=== PATIENT | female | born 1955 | race Hispanic/Latino ===

== ENCOUNTER 2019-09-07 08:17 | Outpatient (CLI) | payer BC ==
--- NOTE | 2019-09-07 09:24 | MMO ---
Bilateral MAMMO Bilat Screen [facility]. CLINICAL HISTORY: Patient is 63 years old and is seen for screening. The patient has no family history of breast cancer. The patient has no personal history of cancer. VIEWS: The views performed were: bilateral craniocaudal with tomosynthesis and bilateral mediolateral oblique with tomosynthesis. FILMS COMPARED: The present examination has been compared to prior imaging studies performed at [facility] on 07/14/2011, 08/01/2012, 09/18/2013 and 10/04/2016. This study has been interpreted with the assistance of computer-aided detection. MAMMOGRAM FINDINGS: There are scattered fibroglandular densities. Finding 1: There are stable benign appearing calcifications seen in both breasts. There are no suspicious masses, calcifications or areas of architectural distortion. Finding 2: There is a stable intramammary lymph node seen in the left breast. There are no suspicious masses, suspicious calcifications, or new areas of architectural distortion. IMPRESSION: THERE IS NO MAMMOGRAPHIC EVIDENCE OF MALIGNANCY. A ROUTINE FOLLOW-UP MAMMOGRAM IN 1 YEAR IS RECOMMENDED. THE RESULTS OF THIS EXAM WERE SENT TO THE PATIENT. ACR BI-RADS Category 2 - Benign finding MAMMOGRAPHY NOTE: 1. A negative mammogram report should not delay a biopsy if a dominant of clinically suspicious mass is present. 2. Approximately 10% to 15% of breast cancers are not detected by mammography. 3. Adenosis and dense breasts may obscure an underlying neoplasm. Reported by: TIA RUANO MD Electonically Signed: [id number]
== END 2019-09-07 08:18 | disposition home or self-care (01) ==
LOC: BICMAMMO 08:17
PROVIDERS: ATTEND Family Medicine
DX: Z12.31 Encounter for screening mammogram for malignant neoplasm of breast (principal)
CPT/HCPCS: 77063; 77067

== ENCOUNTER 2020-09-08 11:28 | Outpatient (CLI) | payer OTHER ==
--- NOTE | 2020-09-08 13:24 | MMO ---
Bilateral MAMMO Bilat Screen [facility]. CLINICAL HISTORY: Patient is 64 years old and is seen for screening. The patient has no family history of breast cancer. The patient has no personal history of cancer. VIEWS: The views performed were: bilateral craniocaudal with tomosynthesis and bilateral mediolateral oblique with tomosynthesis. FILMS COMPARED: The present examination has been compared to prior imaging studies performed at [facility] on 08/01/2012, 09/18/2013, 10/04/2016 and 09/07/2019. This study has been interpreted with the assistance of computer-aided detection. MAMMOGRAM FINDINGS: There are scattered fibroglandular densities. Finding 1: There are vascular calcifications seen in both breasts. Finding 2: There is a stable intramammary lymph node seen in the left breast. There are no suspicious masses, suspicious calcifications, or new areas of architectural distortion. IMPRESSION: THERE IS NO MAMMOGRAPHIC EVIDENCE OF MALIGNANCY. A ROUTINE FOLLOW-UP MAMMOGRAM IN 1 YEAR IS RECOMMENDED. THE RESULTS OF THIS EXAM WERE SENT TO THE PATIENT. ACR BI-RADS Category 2 - Benign finding MAMMOGRAPHY NOTE: 1. A negative mammogram report should not delay a biopsy if a dominant of clinically suspicious mass is present. 2. Approximately 10% to 15% of breast cancers are not detected by mammography. 3. Adenosis and dense breasts may obscure an underlying neoplasm. Reported by: EDWIN BRICEÑO MD Electonically Signed: [id number]
== END 2020-09-08 11:29 | disposition home or self-care (01) ==
LOC: BICMAMMO 11:28
PROVIDERS: ATTEND Family Medicine
DX: Z12.31 Encounter for screening mammogram for malignant neoplasm of breast (principal)
CPT/HCPCS: 77063; 77067

== ENCOUNTER 2022-03-05 08:23 | Outpatient (CLI) | payer MEDICARE | END 2022-03-05 08:24 | disposition home or self-care (01) | LOC: BICMAMMO 08:23 | PROVIDERS: ATTEND Family Medicine | DX: Z12.31 Encounter for screening mammogram for malignant neoplasm of breast (principal) | CPT/HCPCS: 77063; 77067 ==

== ENCOUNTER 2023-05-31 10:34 | Outpatient (CLI) | payer MEDICARE | END 2023-05-31 10:35 | disposition home or self-care (01) | LOC: RAD 10:34 | PROVIDERS: ATTEND Family Medicine | DX: M25.511 Pain in right shoulder (principal); M19.011 Primary osteoarthritis, right shoulder; M75.31 Calcific tendinitis of right shoulder ==

== ENCOUNTER 2023-06-21 21:27 | Inpatient (IN) | payer MEDICARE ==
[~2023-06-21 21:27] MED LIST: Iopamidol 370 76% 100 ML VIAL ONE
[2023-06-21 22:04] LABS: #Basophils 0.1 thou/uL (0.0-0.2); #Eosinphils 0.2 thou/uL (0.0-0.7); #Monocytes 0.6 thou/uL (0.11-0.59); #Neutrophils 4.5 thou/uL (1.40-6.50); %Basophils 0.6 % (0.0-1.0); %Eosinophils 2.4 % (0.0-10.0); %Lymphocytes 30.9 % (21.0-51.0); %Neutrophils 57.8 % (42.0-75.0); Hematocrit 43.7 % (36.0-47.0); Hemoglobin 15.3 g/dL (12.0-16.0); Mean Corpuscular Hemoglobin 28.1 pg (27.0-31.0); Mean Corpuscular Volume 80.3 fl (78.0-98.0); Mean Platelet Volume 10.7 fL (7.4-10.4); Platelet Count 258 10x3/uL (130-400); RBC Distribution Width 12.8 % (11.5-14.5); Red Blood Cell (RBC) Count 5.44 mill/uL (4.20-5.40); White Blood Cell (WBC) Count 7.9 10x3/uL (4.8-10.8)
[2023-06-21 22:25] LABS: ALT (SGPT) 118 U/L (8-55); AST (SGOT) 72 U/L (5-34); Albumin 4.6 g/dL (3.4-4.8); Alkaline Phosphatase 89 U/L (40-110); Anion Gap 17 mmol/L (10-20); BUN (Urea Nitrogen) 18 mg/dL (9.8-20.1); Bilirubin, Total 0.5 mg/dL (0.2-1.2); Calc. Creatinine Clearance 0 mL/min (70-130); Calcium 10.1 mg/dL (7.8-10.44); Carbon Dioxide 22 mmol/L (23-31); Chloride 98 mmol/L (98-107); Estimated GFR 68; Globulin 4.4 g/dL (2.4-3.5); Glucose 311 mg/dL (80-115); Lipase 78 U/L (8-78); Potassium 4.3 mmol/L (3.5-5.1); Sodium 133 mmol/L (136-145)
[2023-06-21 22:29] LABS: Troponin I 0.157 ng/mL (< 0.028)
[2023-06-21] MEDS ORDERED: Aspirin Chewable 81 MG TAB ONE (23:10)
[2023-06-21] MEDS ORDERED: Morphine 4 MG/ML VIAL ONE (23:26)
[2023-06-21] MEDS ORDERED: Nitroglycerin 0.4 MG TAB 1 EACH ONE (23:27)
[2023-06-21] MEDS ORDERED: Nitroglycerin 50 MG/250 ML BOT 0 ML ONE (23:28)
[2023-06-22] MEDS ORDERED: Morphine 4 MG/ML VIAL ONE (00:51)
[2023-06-22 01:12] LABS: Magnesium 1.7 mg/dL (1.6-2.6)
[2023-06-22 01:17] LABS: Troponin I 0.149 ng/mL (< 0.028)
[2023-06-22] MEDS ORDERED: Nitroglycerin 2% Ointment 1 INCH/1 GM Packet ONE ×2 (01:37→05:43)
[2023-06-22] MEDS ORDERED: Dextrose 50% Abboject 50 ML SYRINGE SLOW IVP PRN (01:49)
[2023-06-22] MEDS ORDERED: Glucagon 1 MG/ML KIT IM PRN (01:49)
[2023-06-22] MEDS ORDERED: Dextrose 5% in Water 1,000 ML IV PRN (01:49)
[2023-06-22] MEDS ORDERED: Nitroglycerin 0.4 MG TAB (25 Tab Bottle) SL PRN (01:49)
[2023-06-22] MEDS ORDERED: HumaLOG 300 UNITS/3 ML VIAL SC PRN ×3 (01:51→03:05)
[2023-06-22 02:23] LABS: INR-International Normal Ratio 0.9; Prothrombin Time 12.9 sec (12.0-14.7)
[2023-06-22 02:24] LABS: PTT 29.4 sec (22.9-36.1)
[2023-06-22] MEDS ORDERED: Labetalol HCl 100 MG/20 ML VIAL SLOW IVP PRN (02:51)
[2023-06-22] MEDS ORDERED: Heparin 10,000 UNITS/ 10 ML VIAL SLOW IVP SCH (03:00)
[2023-06-22] MEDS ORDERED: Labetalol HCl 100 MG/20 ML VIAL SLOW IVP SCH (03:00)
[2023-06-22] MEDS ORDERED: Heparin 25,000 units/D5W 500 ML IVPB SCH (03:00)
[2023-06-22] MEDS ORDERED: Heparin 25,000 units/D5W 500 ML ONE (03:15)
[2023-06-22] MEDS ORDERED: Labetalol HCl 100 MG/20 ML VIAL ONE (03:16)
[2023-06-22 03:45] LABS: Hematocrit 45.6 % (36.0-47.0); Hemoglobin 15.2 g/dL (12.0-16.0); Platelet Count 275 10x3/uL (130-400)
[2023-06-22 03:56] LABS: Hemoglobin A1c 10.2 % (4.0-6.0)
[2023-06-22] MEDS ORDERED: Nitroglycerin 0.4 MG TAB 1 EACH ONE (04:04)
[2023-06-22 04:10] LABS: ALT (SGPT) 118 U/L (8-55); AST (SGOT) 80 U/L (5-34); Albumin 4.6 g/dL (3.4-4.8); Alkaline Phosphatase 77 U/L (40-110); Anion Gap 19 mmol/L (10-20); BUN (Urea Nitrogen) 17 mg/dL (9.8-20.1); Bilirubin, Total 0.6 mg/dL (0.2-1.2); Calc. Creatinine Clearance 79 mL/min (70-130); Calcium 10.2 mg/dL (7.8-10.44); Carbon Dioxide 18 mmol/L (23-31); Chloride 98 mmol/L (98-107); Estimated GFR 77; Globulin 4.1 g/dL (2.4-3.5); Glucose 359 mg/dL (80-115); Potassium 4.1 mmol/L (3.5-5.1); Protein, Total 8.7 g/dL (5.8-8.1); Sodium 131 mmol/L (136-145)
[2023-06-22] MEDS ORDERED: HumaLOG 300 UNITS/3 ML VIAL ONE (05:48)
[2023-06-22] MEDS: Nitroglycerin 2% Ointment 1 INCH/1 GM Packet TOP SCH ×3 (05:51→21:23)
[2023-06-22] MEDS ORDERED: Gabapentin 300 MG CAP PO SCH (09:00)
[2023-06-22] MEDS ORDERED: Non-Formulary Item 1 EACH (Insulin Detemir [Levemir Flexpen] 100 UNIT/ML Insuln.Pen) SQ SCH (09:00)
[2023-06-22] MEDS ORDERED: Non-Formulary Item 1 EACH (Tolterodine Tartrate [Tolterodine Tartrate Er] 4 MG Cap.Er.24h PO SCH (09:00)
[2023-06-22] MEDS ORDERED: Aspirin 81 mg Enteric Coated Tablet PO SCH (09:00)
[2023-06-22] MEDS ORDERED: Amlodipine 10 MG TAB PO SCH (09:00)
[2023-06-22] MEDS ORDERED: Insulin Glargine 30 UNITS/0.3 ML VIAL SC SCH (09:00)
[2023-06-22] MEDS ORDERED: Aspirin Chewable 81 MG TAB ONE (09:35)
[2023-06-22] MEDS: Lisinopril 20 MG TAB PO SCH (09:42)
[2023-06-22] MEDS: Trospium 20 MG TAB PO SCH ×2 (09:45→21:23)
[2023-06-22] MEDS ORDERED: Iopamidol 370 76% 100 ML VIAL ONE (10:03)
[2023-06-22] MEDS ORDERED: Lidocaine 1% (PF) 30 ML VIAL ONE (11:53)
[2023-06-22] MEDS ORDERED: Verapamil 5 MG/2 ML VIAL ONE (11:53)
[2023-06-22] MEDS ORDERED: Adenosine 6 MG/2 ML VIAL ONE (11:53)
[2023-06-22] MEDS ORDERED: Heparin 10,000 UNITS/ 10 ML VIAL ONE (11:53)
[2023-06-22] MEDS ORDERED: Nitroglycerin 50 MG/250 ML BOT 250 ML ONE (11:54)
[2023-06-22] MEDS ORDERED: fentaNYL 50 mcg/mL 1 mL Vial ONE (12:26)
[2023-06-22] MEDS ORDERED: Midazolam HCl 2 mg/2 ml Vial ONE (12:26)
[2023-06-22] MEDS ORDERED: Communication Order-Pharmacy FS SCH (16:40)
[2023-06-22] MEDS ORDERED: Atorvastatin Calcium 40 MG TAB PO SCH (21:00)
[2023-06-22] MEDS: HumaLOG 300 UNITS/3 ML VIAL SC PRN (21:23)
[2023-06-22] MEDS ORDERED: Sevoflurane 250 ML INH ANEST BOTTLE ONE (23:10)
[2023-06-23 04:34] LABS: Cardiac Risk 5.4 (Less than 4.5)
[2023-06-23 04:48] LABS: Troponin I 10.041 ng/mL (< 0.028)
[2023-06-23] MEDS: Nitroglycerin 2% Ointment 1 INCH/1 GM Packet TOP SCH (05:28)
[2023-06-23] MEDS: HumaLOG 300 UNITS/3 ML VIAL SC PRN (05:42)
[2023-06-23] MEDS: Lisinopril 20 MG TAB PO SCH (09:56)
[2023-06-23] MEDS ORDERED: PHENYLEPHRINE-NS 100 MCG/ML 10 ML SYRINGE ONE (10:56)
[2023-06-23] MEDS ORDERED: Albumin 5% 500 ML ONE (10:56)
[2023-06-23] MEDS: Nitroglycerin 0.4 MG TAB (25 Tab Bottle) ONE ×2 (11:05→11:12)
[2023-06-23] MEDS ORDERED: Fentanyl 250 MCG/5 ML VIAL ONE (11:56)
[2023-06-23] MEDS ORDERED: Midazolam HCl 2 mg/2 ml Vial ONE (11:57)
[2023-06-23] MEDS ORDERED: Nitroglycerin 0.4 MG TAB (25 Tab Bottle) SL PRN (11:57)
[2023-06-23] MEDS ORDERED: Insulin Regular 300 UNITS/3 ML VIAL ONE (11:58)
[2023-06-23] MEDS ORDERED: Norepinephrine 4 MG/4 ML VIAL ONE (11:58)
[2023-06-23] MEDS ORDERED: Rocuronium Bromide 50 MG/5 ML VIAL ONE (11:58)
[2023-06-23] MEDS ORDERED: Aminocaproic Acid 5 GM/20 ML VIAL ONE ×2 (11:58→12:22)
[2023-06-23] MEDS ORDERED: Nitroglycerin 0.4 MG TAB (25 Tab Bottle) SL SCH (12:00)
[2023-06-23] MEDS ORDERED: Sodium Chloride 0.9% 100 ML ONE (12:04)
[2023-06-23] MEDS ORDERED: CEFAZOLIN 2 GM VIAL ONE (12:04)
[2023-06-23] MEDS ORDERED: Heparin 10,000 UNITS/1 ML VIAL 30,000 UNITS in Sodium Chloride 0.9% 1,000 ML FS SCH (12:15)
[2023-06-23] MEDS ORDERED: Esmolol 100 MG/10 ML VIAL ONE (12:22)
[2023-06-23] MEDS ORDERED: Potassium Chloride 60 MEQ/30 ML VIAL ONE (12:22)
[2023-06-23] MEDS ORDERED: Lidocaine 1% PF 5 ML VIAL ONE (12:22)
[2023-06-23] MEDS ORDERED: Heparin 5,000 UNITS/ML VIAL ONE (12:22)
[2023-06-23] MEDS ORDERED: Protamine Sulfate 250 MG/25 ML VIAL ONE (12:22)
[2023-06-23] MEDS ORDERED: Rocuronium Bromide 10 MG/ML (10ML VIAL) ONE (12:22)
[2023-06-23] MEDS ORDERED: Papaverine 60 MG/2 ML VIAL ONE (12:22)
[2023-06-23] MEDS ORDERED: Mannitol 12.5 GM/50 ML ONE (12:22)
[2023-06-23] MEDS ORDERED: Vancomycin 1 GM VIAL ONE (12:22)
[2023-06-23] MEDS ORDERED: Cardioplegic Soln 1,000 ML BAG ONE (12:22)
[2023-06-23] MEDS ORDERED: Lidocaine 2% PF 100 mg/5 ml Syringe ONE (12:22)
[2023-06-23] MEDS ORDERED: Heparin 30,000 units/30 ml VIAL ONE (12:22)
[2023-06-23] MEDS ORDERED: PROPOFOL 200 MG/20 ML VIAL ONE (12:22)
[2023-06-23] MEDS ORDERED: Calcium Chloride 1 GM/10 ML Abboject SYRINGE ONE (12:22)
[2023-06-23] MEDS ORDERED: Sodium Bicarb 50 MEQ/50 ML VIAL ONE (12:22)
[2023-06-23] MEDS ORDERED: Thrombin 5000 UNITS/5 ML VIAL ONE (12:22)
[2023-06-23] MEDS ORDERED: Sevoflurane 250 ML INH ANEST BOTTLE ONE (13:47)
[2023-06-23] MEDS ORDERED: niCARdipine 25 MG in Sodium Chloride 0.9% 250 ML 250 ML IVPB PRN (15:31)
[2023-06-23] MEDS ORDERED: Ipratropium/Albuterol 3 ML NEB NEB PRN (15:31)
[2023-06-23] MEDS ORDERED: Hetastarch 6% 500 ML 500 ML IVPB PRN (15:31)
[2023-06-23] MEDS ORDERED: Post-Op Insulin Drip Protocol IVPB ONE (15:31)
[2023-06-23] MEDS ORDERED: Nitroglycerin 50 MG/250 ML BOT 250 ML IVPB PRN (15:31)
[2023-06-23] MEDS ORDERED: Bisacodyl 10 MG SUPP PR PRN (15:31)
[2023-06-23] MEDS ORDERED: hydrALAZINE 20 MG/ML VIAL SLOW IVP PRN (15:31)
[2023-06-23] MEDS ORDERED: DOPamine 400 MG/D5W 250 ML 250 ML IVPB PRN (15:31)
[2023-06-23] MEDS ORDERED: Guaifenesin DM 100-10/5 ML UDCUP PO PRN (15:31)
[2023-06-23] MEDS ORDERED: NOREPINEPHRINE 8 MG/250 ML-D5W 250 ML IVPB PRN (15:31)
[2023-06-23] MEDS ORDERED: Mag-Al 1200 mg/1200 mg/30 ML UDCUP PO PRN (15:31)
[2023-06-23] MEDS ORDERED: fentaNYL 50 mcg/mL 1 mL Vial SLOW IVP PRN (15:31)
[2023-06-23] MEDS ORDERED: Bisacodyl 5 MG TAB PO PRN (15:31)
[2023-06-23 15:42] LABS: Actual Bicarbonate (HCO3a) 23.9 mEq/L (22-28); CO2 Tension 40.5 mmHg (35.0-45.0); Calcium, Ionized (arterial) 1.11 mmol/L (1.12-1.30); Carboxyhemoglobin (COHb) 0.5 gm% (0.0-3.0); Hematocrit-ABG 39 % (36.0-47.0); Hemoglobin (Hb) 13.2 g/dL (12.0-16.0); O2 Tension (PaO2), arterial 115.7 mmHg (> 80.0); Potassium - ABG Lab 3.95 mmol/L (3.70-5.30); Puncture Site Arterial Line; pH, Arterial 7.389 (7.35-7.45)
[2023-06-23 15:43] LABS: ALV-art Gradient 261.475 mmHg (0-20)
[2023-06-23 15:50] LABS: #Eosinphils 0.1 thou/uL (0.0-0.7); #Monocytes 1.5 thou/uL (0.11-0.59); #Neutrophils 13.1 thou/uL (1.40-6.50); %Basophils 0.2 % (0.0-1.0); %Eosinophils 0.5 % (0.0-10.0); %Lymphocytes 13.1 % (21.0-51.0); %Monocytes 8.8 % (0.0-10.0); %Neutrophils 76.5 % (42.0-75.0); Hematocrit 38.6 % (36.0-47.0); Hemoglobin 12.7 g/dL (12.0-16.0); Mean Corpuscular HGB CONC 32.9 g/dL (32.0-36.0); Mean Corpuscular Hemoglobin 27.4 pg (27.0-31.0); Mean Corpuscular Volume 83.4 fl (78.0-98.0); Mean Platelet Volume 10.2 fL (7.4-10.4); Platelet Count 178 10x3/uL (130-400); RBC Distribution Width 12.9 % (11.5-14.5); Red Blood Cell (RBC) Count 4.63 mill/uL (4.20-5.40); White Blood Cell (WBC) Count 17.1 10x3/uL (4.8-10.8)
[2023-06-23] MEDS ORDERED: Glucagon 1 MG/ML KIT SC PRN (16:00)
[2023-06-23] MEDS ORDERED: Dextrose 5% in Water 1,000 ML IV PRN (16:00)
[2023-06-23] MEDS ORDERED: HUMULIN R 100 UNITS in Sodium Chloride 0.9% 100 ML IVPB SCH (16:00)
[2023-06-23] MEDS ORDERED: Dextrose 50% Abboject 50 ML SYRINGE SLOW IVP PRN (16:00)
[2023-06-23 16:05] LABS: INR-International Normal Ratio 1.2; PTT 32.4 sec (22.9-36.1); Prothrombin Time 16.2 sec (12.0-14.7)
[2023-06-23] MEDS: Morphine 2 MG/ML VIAL SLOW IVP PRN ×2 (16:11→16:53)
[2023-06-23] MEDS: Lactated Ringer's 1,000 ML IV SCH (16:14)
[2023-06-23 16:15] LABS: Anion Gap 12 mmol/L (10-20); BUN (Urea Nitrogen) 15 mg/dL (9.8-20.1); Calc. Creatinine Clearance 105 mL/min (70-130); Calcium 7.8 mg/dL (7.8-10.44); Carbon Dioxide 22 mmol/L (23-31); Chloride 108 mmol/L (98-107); Estimated GFR 98; Glucose 178 mg/dL (80-115); Potassium 3.9 mmol/L (3.5-5.1); Sodium 138 mmol/L (136-145)
[2023-06-23 16:59] LABS: Actual Bicarbonate (HCO3a) 22.8 mEq/L (22-28); Base Excess (BEa) -1.7 mEq/L (-2.0 to +3.0); CO2 Tension 38.3 mmHg (35.0-45.0); Calcium, Ionized (arterial) 1.11 mmol/L (1.12-1.30); Carboxyhemoglobin (COHb) 0.7 gm% (0.0-3.0); Hematocrit-ABG 41 % (36.0-47.0); Hemoglobin (Hb) 13.9 g/dL (12.0-16.0); O2 Tension (PaO2), arterial 88.4 mmHg (> 80.0); Potassium - ABG Lab 3.54 mmol/L (3.70-5.30); pH, Arterial 7.393 (7.35-7.45)
[2023-06-23 17:00] LABS: Puncture Site Arterial Line
[2023-06-23 17:01] LABS: ALV-art Gradient 77.625 mmHg (0-20)
[2023-06-23] MEDS: Potassium Chloride 20 MEQ/100 ML PREMIX BAG IVPB PRN (17:11)
[2023-06-23] MEDS: fentaNYL 50 mcg/mL 1 mL Vial SLOW IVP PRN ×3 (17:57→22:20)
[2023-06-23] MEDS: Famotidine/PF 20 mg/2ml Vial SLOW IVP SCH (20:15)
[2023-06-23] MEDS: CEFAZOLIN 2 GM in Sodium Chloride 0.9% 100 ML IVPB SCH (20:15)
[2023-06-23] MEDS: HYDROcodone/Acetaminophen 5/325 mg Tablet PO PRN (20:29)
[2023-06-23] MEDS ORDERED: Atorvastatin Calcium 20 MG TAB PO SCH (21:00)
[2023-06-23 21:14] LABS: Hematocrit 40.3 % (36.0-47.0); Hemoglobin 13.4 g/dL (12.0-16.0)
[2023-06-23 22:22] LABS: Potassium 3.6 mmol/L (3.5-5.1)
[2023-06-24] MEDS: fentaNYL 50 mcg/mL 1 mL Vial SLOW IVP PRN ×4 (00:26→09:56)
[2023-06-24] MEDS: HYDROcodone/Acetaminophen 5/325 mg Tablet PO PRN ×5 (00:27→22:36)
[2023-06-24 04:21] LABS: %Basophils 0.2 % (0.0-1.0); %Lymphocytes 8.5 % (21.0-51.0); %Monocytes 9.3 % (0.0-10.0); %Neutrophils 81.7 % (42.0-75.0); Hematocrit 37.1 % (36.0-47.0); Hemoglobin 12.4 g/dL (12.0-16.0); Mean Corpuscular HGB CONC 33.4 g/dL (32.0-36.0); Mean Corpuscular Volume 83.7 fl (78.0-98.0); Mean Platelet Volume 10.8 fL (7.4-10.4); Platelet Count 171 10x3/uL (130-400); RBC Distribution Width 13.2 % (11.5-14.5); Red Blood Cell (RBC) Count 4.43 mill/uL (4.20-5.40)
[2023-06-24 04:49] LABS: Anion Gap 12 mmol/L (10-20); BUN (Urea Nitrogen) 15 mg/dL (9.8-20.1); Calc. Creatinine Clearance 116 mL/min (70-130); Calcium 8.1 mg/dL (7.8-10.44); Carbon Dioxide 23 mmol/L (23-31); Chloride 106 mmol/L (98-107); Estimated GFR 100; Glucose 127 mg/dL (80-115); Potassium 3.3 mmol/L (3.5-5.1); Sodium 138 mmol/L (136-145)
[2023-06-24] MEDS: CEFAZOLIN 2 GM in Sodium Chloride 0.9% 100 ML IVPB SCH ×2 (05:22→12:26)
[2023-06-24] MEDS: Ondansetron PF 4 MG/2 ML Vial IVP PRN (06:04)
[2023-06-24] MEDS: Lactated Ringer's 1,000 ML IV SCH (06:05)
[2023-06-24] MEDS: glyBURIDE 5 MG TAB PO SCH (07:57)
[2023-06-24] MEDS ORDERED: Acetaminophen 325 MG TAB PO SCH (08:45)
[2023-06-24] MEDS: Magnesium 2 GM/50 ML(in water) 2 GM in Premix Bag 1 BAG IVPB SCH (08:56)
[2023-06-24] MEDS: Insulin Glargine 30 UNITS/0.3 ML VIAL SC SCH ×2 (08:57→22:37)
[2023-06-24] MEDS: Famotidine/PF 20 mg/2ml Vial SLOW IVP SCH (08:57)
[2023-06-24] MEDS: Aspirin Chewable 81 MG TAB PO SCH (08:57)
[2023-06-24] MEDS: Metoprolol Tartrate 25 MG TAB PO SCH ×2 (08:58→22:18)
[2023-06-24] MEDS: Ketorolac Tromethamine 30 MG/ML VIAL IVP SCH ×3 (10:05→22:10)
[2023-06-24] MEDS: Acetaminophen 325 MG TAB PO PRN ×2 (12:37→18:46)
[2023-06-24] MEDS ORDERED: Insulin Glargine 30 UNITS/0.3 ML VIAL SC PRN (15:58)
[2023-06-24] MEDS: Insulin Regular 300 UNITS/3 ML VIAL SC PRN ×3 (16:42→22:13)
[2023-06-24] MEDS: Famotidine 20 MG TAB PO SCH (22:17)
[2023-06-24] MEDS: Atorvastatin Calcium 40 MG TAB PO SCH (22:17)
[2023-06-25] MEDS: Insulin Regular 300 UNITS/3 ML VIAL SC PRN ×5 (02:03→21:28)
[2023-06-25] MEDS: Ketorolac Tromethamine 30 MG/ML VIAL IVP SCH ×4 (02:05→20:02)
[2023-06-25 04:25] LABS: #Monocytes 0.8 thou/uL (0.11-0.59); #Neutrophils 6.9 thou/uL (1.40-6.50); %Basophils 0.3 % (0.0-1.0); %Eosinophils 0.2 % (0.0-10.0); %Lymphocytes 12.9 % (21.0-51.0); %Monocytes 9.3 % (0.0-10.0); %Neutrophils 77.1 % (42.0-75.0); Hematocrit 30.5 % (36.0-47.0); Hemoglobin 9.9 g/dL (12.0-16.0); Mean Corpuscular HGB CONC 32.5 g/dL (32.0-36.0); Mean Corpuscular Hemoglobin 27.8 pg (27.0-31.0); Mean Corpuscular Volume 85.7 fl (78.0-98.0); Mean Platelet Volume 11.2 fL (7.4-10.4); Platelet Count 134 10x3/uL (130-400); RBC Distribution Width 13.2 % (11.5-14.5); Red Blood Cell (RBC) Count 3.56 mill/uL (4.20-5.40)
[2023-06-25 04:56] LABS: Anion Gap 9 mmol/L (10-20); BUN (Urea Nitrogen) 17 mg/dL (9.8-20.1); Calc. Creatinine Clearance 86 mL/min (70-130); Calcium 8.2 mg/dL (7.8-10.44); Carbon Dioxide 27 mmol/L (23-31); Chloride 103 mmol/L (98-107); Estimated GFR 85; Glucose 261 mg/dL (80-115); Potassium 3.6 mmol/L (3.5-5.1); Sodium 135 mmol/L (136-145)
[2023-06-25] MEDS: Potassium Chloride 20 MEQ/100 ML PREMIX BAG IVPB PRN (05:15)
[2023-06-25] MEDS: fentaNYL 50 mcg/mL 1 mL Vial SLOW IVP PRN ×2 (05:47→08:58)
[2023-06-25] MEDS: glyBURIDE 5 MG TAB PO SCH (08:52)
[2023-06-25] MEDS: Aspirin Chewable 81 MG TAB PO SCH (08:52)
[2023-06-25] MEDS: Metoprolol Tartrate 25 MG TAB PO SCH ×2 (08:52→20:01)
[2023-06-25] MEDS: Magnesium 2 GM/50 ML(in water) 2 GM in Premix Bag 1 BAG IVPB SCH (08:52)
[2023-06-25] MEDS: Famotidine 20 MG TAB PO SCH ×2 (08:53→20:01)
[2023-06-25] MEDS ORDERED: Insulin Glargine 30 UNITS/0.3 ML VIAL SC SCH (09:00)
[2023-06-25] MEDS: HYDROcodone/Acetaminophen 5/325 mg Tablet PO PRN ×2 (11:13→17:40)
[2023-06-25] MEDS: Acetaminophen 325 MG TAB PO PRN (11:15)
[2023-06-25] MEDS ORDERED: Bisacodyl 5 MG TAB PO PRN (12:18)
[2023-06-25] MEDS ORDERED: Nitroglycerin 0.4 MG TAB (25 Tab Bottle) SL PRN (12:18)
[2023-06-25] MEDS ORDERED: Zolpidem Tartrate 5 MG TAB PO PRN (12:18)
[2023-06-25] MEDS ORDERED: Furosemide 40 MG TAB PO SCH (12:18)
[2023-06-25] MEDS ORDERED: Mag-Al 1200 mg/1200 mg/30 ML UDCUP PO PRN (12:18)
[2023-06-25] MEDS ORDERED: Bisacodyl 10 MG SUPP PR PRN (12:18)
[2023-06-25] MEDS ORDERED: Mineral Oil ENEMA PR PRN (12:18)
[2023-06-25] MEDS ORDERED: Artificial Tear Sol 15 ML BOT EA EYE PRN (12:18)
[2023-06-25] MEDS ORDERED: Insulin Regular 300 UNITS/3 ML VIAL SC PRN (13:00)
[2023-06-25] MEDS: Atorvastatin Calcium 40 MG TAB PO SCH (20:01)
[2023-06-25] MEDS: Insulin Glargine 30 UNITS/0.3 ML VIAL SC SCH (21:28)
[2023-06-26] MEDS: Ketorolac Tromethamine 30 MG/ML VIAL IVP SCH ×2 (03:47→08:44)
[2023-06-26] MEDS: Insulin Regular 300 UNITS/3 ML VIAL SC PRN ×4 (06:39→20:26)
[2023-06-26] MEDS ORDERED: Potassium Chloride 10 MEQ TAB PO SCH ×2 (08:00→08:30)
[2023-06-26] MEDS: Famotidine 20 MG TAB PO SCH ×2 (08:48→20:25)
[2023-06-26] MEDS: glyBURIDE 5 MG TAB PO SCH (08:48)
[2023-06-26] MEDS: Metoprolol Tartrate 25 MG TAB PO SCH ×2 (08:49→20:25)
[2023-06-26] MEDS: Aspirin Chewable 81 MG TAB PO SCH (08:49)
[2023-06-26] MEDS: Furosemide 40 MG TAB PO SCH ×2 (08:49→14:48)
[2023-06-26] MEDS ORDERED: Furosemide 40 MG TAB PO SCH (09:00)
[2023-06-26] MEDS ORDERED: Insulin Glargine 30 UNITS/0.3 ML VIAL SC SCH (09:00)
[2023-06-26] MEDS: HYDROcodone/Acetaminophen 5/325 mg Tablet PO PRN ×3 (11:40→20:24)
[2023-06-26] MEDS: Potassium Chloride 10 MEQ TAB PO SCH (16:22)
[2023-06-26] MEDS: Atorvastatin Calcium 40 MG TAB PO SCH (20:25)
[2023-06-26] MEDS: Insulin Glargine 30 UNITS/0.3 ML VIAL SC SCH (20:26)
[2023-06-27] MEDS: Ondansetron PF 4 MG/2 ML Vial IVP PRN (00:49)
[2023-06-27] MEDS: Insulin Regular 300 UNITS/3 ML VIAL SC PRN ×3 (06:49→23:58)
[2023-06-27] MEDS: HYDROcodone/Acetaminophen 5/325 mg Tablet PO PRN ×3 (07:33→18:01)
[2023-06-27] MEDS: Guaifenesin DM 100-10/5 ML UDCUP PO PRN ×2 (07:35→20:00)
[2023-06-27] MEDS: glyBURIDE 5 MG TAB PO SCH (07:38)
[2023-06-27] MEDS: Potassium Chloride 10 MEQ TAB PO SCH ×2 (07:38→17:02)
[2023-06-27] MEDS: Furosemide 40 MG TAB PO SCH ×2 (08:39→17:02)
[2023-06-27] MEDS: Metoprolol Tartrate 25 MG TAB PO SCH ×2 (08:40→20:00)
[2023-06-27] MEDS: Insulin Glargine 30 UNITS/0.3 ML VIAL SC SCH ×2 (08:40→20:00)
[2023-06-27] MEDS: Aspirin Chewable 81 MG TAB PO SCH (08:41)
[2023-06-27] MEDS: Famotidine 20 MG TAB PO SCH ×2 (08:41→20:00)
[2023-06-27] MEDS: diphenhydrAMINE 25 MG CAP PO PRN (20:00)
[2023-06-27] MEDS: Atorvastatin Calcium 40 MG TAB PO SCH (20:00)
[2023-06-28] MEDS: Insulin Regular 300 UNITS/3 ML VIAL SC PRN ×4 (06:56→23:05)
[2023-06-28] MEDS ORDERED: Furosemide 40 MG/4 ML VIAL SLOW IVP SCH (07:15)
[2023-06-28] MEDS: glyBURIDE 5 MG TAB PO SCH (10:03)
[2023-06-28] MEDS: HYDROcodone/Acetaminophen 5/325 mg Tablet PO PRN ×3 (10:04→23:05)
[2023-06-28] MEDS: Furosemide 40 MG TAB PO SCH ×2 (10:04→15:04)
[2023-06-28] MEDS: Famotidine 20 MG TAB PO SCH ×2 (10:04→20:43)
[2023-06-28] MEDS: Aspirin Chewable 81 MG TAB PO SCH (10:04)
[2023-06-28] MEDS: Metoprolol Tartrate 25 MG TAB PO SCH ×2 (10:04→20:43)
[2023-06-28] MEDS: Potassium Chloride 10 MEQ TAB PO SCH ×2 (10:04→16:37)
[2023-06-28] MEDS: Insulin Glargine 30 UNITS/0.3 ML VIAL SC SCH (10:05)
[2023-06-28] MEDS: Guaifenesin DM 100-10/5 ML UDCUP PO PRN ×2 (11:36→20:42)
[2023-06-28 11:43] LABS: Anion Gap 14 mmol/L (10-20); BUN (Urea Nitrogen) 15 mg/dL (9.8-20.1); Calc. Creatinine Clearance 94 mL/min (70-130); Calcium 9.1 mg/dL (7.8-10.44); Carbon Dioxide 25 mmol/L (23-31); Chloride 99 mmol/L (98-107); Estimated GFR 88; Glucose 310 mg/dL (80-115); Magnesium 1.7 mg/dL (1.6-2.6); Phosphorus 4.4 mg/dL (2.3-4.7); Potassium 4.2 mmol/L (3.5-5.1); Sodium 134 mmol/L (136-145)
[2023-06-28 14:13] VITALS: BMI 31.6
[2023-06-28] MEDS: diphenhydrAMINE 25 MG CAP PO PRN (20:43)
[2023-06-28] MEDS: Atorvastatin Calcium 40 MG TAB PO SCH (20:43)
[2023-06-28] MEDS ORDERED: Insulin Glargine 30 UNITS/0.3 ML VIAL SC SCH (21:00)
[2023-06-29] MEDS ORDERED: Sevoflurane 250 ML INH ANEST BOTTLE ONE (00:22)
[2023-06-29] MEDS: glyBURIDE 5 MG TAB PO SCH (08:46)
[2023-06-29] MEDS: Potassium Chloride 10 MEQ TAB PO SCH (08:46)
[2023-06-29] MEDS: Aspirin Chewable 81 MG TAB PO SCH (08:46)
[2023-06-29] MEDS: Famotidine 20 MG TAB PO SCH (08:46)
[2023-06-29] MEDS: Furosemide 40 MG TAB PO SCH ×2 (08:47→14:59)
[2023-06-29] MEDS: Metoprolol Tartrate 25 MG TAB PO SCH (08:47)
[2023-06-29] MEDS: Guaifenesin DM 100-10/5 ML UDCUP PO PRN (08:48)
[2023-06-29] MEDS: HYDROcodone/Acetaminophen 5/325 mg Tablet PO PRN ×2 (08:49→15:01)
[2023-06-29] MEDS ORDERED: Insulin Glargine 30 UNITS/0.3 ML VIAL SC SCH (09:00)
[2023-06-29] MEDS: Insulin Regular 300 UNITS/3 ML VIAL SC PRN (11:49)
[2023-06-29 15:31] VITALS: BP 132/64; TEMP 98.6
== END 2023-06-29 16:10 | disposition home or self-care (01) | DRG 234 ==
LOC: ERS 21:27 → ERHOLD 06-22 02:07 → SURG A 06-22 12:26 → CCU 06-22 13:53 → 2NO 06-25 12:13
PROVIDERS: ADMIT Student in an Organized Health Care Education/Training Program; ATTEND Internal Medicine
PROC: 4A023N7 Measurement of Cardiac Sampling and Pressure, Left Heart, Percutaneous Approach (ICD-10-PCS; principal; 2023-06-22)
PROC: B2151ZZ Fluoroscopy of Left Heart using Low Osmolar Contrast (ICD-10-PCS; 2023-06-22)
PROC: B2111ZZ Fluoroscopy of Multiple Coronary Arteries using Low Osmolar Contrast (ICD-10-PCS; 2023-06-22)
PROC: 02100Z9 Bypass Coronary Artery, One Artery from Left Internal Mammary, Open Approach (ICD-10-PCS; 2023-06-23)
PROC: 021109W Bypass Coronary Artery, Two Arteries from Aorta with Autologous Venous Tissue, Open Approach (ICD-10-PCS; 2023-06-23)
PROC: 06BP4ZZ Excision of Right Saphenous Vein, Percutaneous Endoscopic Approach (ICD-10-PCS; 2023-06-23)
PROC: 5A1221Z Performance of Cardiac Output, Continuous (ICD-10-PCS; 2023-06-23)
PROC: 02L70CK Occlusion of Left Atrial Appendage with Extraluminal Device, Open Approach (ICD-10-PCS; 2023-06-23)
PROC: 4A033R1 Measurement of Arterial Saturation, Peripheral, Percutaneous Approach (ICD-10-PCS; 2023-06-23)
PROC: 3E033XZ Introduction of Vasopressor into Peripheral Vein, Percutaneous Approach (ICD-10-PCS; 2023-06-23)
PROC: 30233J1 Transfusion of Nonautologous Serum Albumin into Peripheral Vein, Percutaneous Approach (ICD-10-PCS; 2023-06-23)
DX: I21.4 Non-ST elevation (NSTEMI) myocardial infarction (principal); I25.110 Atherosclerotic heart disease of native coronary artery with unstable angina pectoris; I16.0 Hypertensive urgency; E03.9 Hypothyroidism, unspecified; E11.40 Type 2 diabetes mellitus with diabetic neuropathy, unspecified; R74.01 Elevation of levels of liver transaminase levels; E78.5 Hyperlipidemia, unspecified; I10 Essential (primary) hypertension; E11.65 Type 2 diabetes mellitus with hyperglycemia; Z79.82 Long term (current) use of aspirin; Z79.899 Other long term (current) drug therapy
CPT/HCPCS: 36415; 36416; 36430; 71045; 71275; 74174; 80048; 80053; 80061; 82805; 82947; 83036; 83690; 83735; 83880; 84100; 84439; 84443; 84484; 85014; 85018; 85025; 85049; 85610; 85730; 86850; 86900; 86901; 93005; 93010; 93459; 93798; 94002; 96374; 96376; 97139; 99152; A4311; C1751; C1769; C1894; J0153; J1642; J1644; J1815; J1885; J1940; J2001; J2150; J2250; J2270; J2272; J2405; J2440; J2704; J2720; J3010; J3370; J3475; J3480; J3490; J7120; P9045; Q9967; S0017; S0028

== ENCOUNTER 2023-07-06 10:53 | Outpatient (CLI) | payer MEDICARE | END 2023-07-06 10:54 | disposition home or self-care (01) | LOC: RAD 10:53 | PROVIDERS: ATTEND Physician Assistant | DX: Z95.1 Presence of aortocoronary bypass graft (principal) | CPT/HCPCS: 71046 ==

== ENCOUNTER 2023-10-07 10:27 | Outpatient (CLI) | payer MEDICARE | END 2023-10-07 10:28 | disposition home or self-care (01) | LOC: BICRAD 10:27 | PROVIDERS: ATTEND Family Medicine | DX: M54.6 Pain in thoracic spine (principal); M25.551 Pain in right hip; M25.552 Pain in left hip; G89.29 Other chronic pain; M47.814 Spondylosis without myelopathy or radiculopathy, thoracic region; M47.816 Spondylosis without myelopathy or radiculopathy, lumbar region; M16.12 Unilateral primary osteoarthritis, left hip | CPT/HCPCS: 36415; 72072; 72100; 80053; 80061; 81001; 83036; 85025 ==

== ENCOUNTER 2024-06-13 08:45 | Outpatient (CLI) | payer MEDICARE | END 2024-06-13 08:46 | disposition home or self-care (01) | LOC: BICMAMMO 08:45 | PROVIDERS: ATTEND Family Medicine | DX: Z12.31 Encounter for screening mammogram for malignant neoplasm of breast (principal) | CPT/HCPCS: 77063; 77067 ==

== ENCOUNTER 2024-11-29 12:58 | Outpatient (CLI) | payer MEDICARE | END 2024-11-29 12:59 | disposition home or self-care (01) | LOC: BICULT 12:58 | PROVIDERS: ATTEND Family Medicine | DX: L02.411 Cutaneous abscess of right axilla (principal) | CPT/HCPCS: 76881 ==